=== PATIENT | female | born 1965 | race Caucasian/White ===

== ENCOUNTER 2017-10-21 06:50 | Day surgery (SDC) | payer BC ==
[~2017-10-21 06:50] MED LIST: Lactated Ringers 1,000 ML IV SCH; Sodium Chloride 0.9% 10 ML Syringe FLUSH PRN
[2017-10-21] MEDS ORDERED: Propofol 200 MG/20 ML SDV IV ONE (08:00)
[2017-10-21] MEDS ORDERED: Midazolam 1 MG/ML 2 ML SDV IV ONE (08:00)
--- NOTE | 2017-10-21 08:36 | PCM.OPNOTE ---
- General Post-Op/Procedure Note Date of Surgery/Procedure: 10/21/17 Operative Procedure(s): c scope Findings: normal exam Pre Op Diagnosis: screening Post-Op Diagnosis: normal study Anesthesia Technique: MAC Primary Surgeon: Trevon Matthews Pathology: none Complications: None Condition: Good Free Text/Narrative:: see dictation
--- NOTE | 2017-10-21 15:43 | OR ---
DATE OF OPERATION: 10/21/2017 SURGEON: Trevon Matthews MD PROCEDURE PERFORMED: Colonoscopy. PREOPERATIVE DIAGNOSIS: Need for screening C scope. POSTOPERATIVE DIAGNOSIS: Normal study. INDICATIONS FOR PROCEDURE: This is a 52-year-old white female, who is referred for screening colonoscopy. She was offered and accepted same. DESCRIPTION OF OPERATION: After an excellent IV sedation was administered, digital rectal exam was performed. No marked abnormality was noted. Flexible colonoscope was inserted and advanced to the cecum without difficulty. The prep was excellent. The following findings were noted: Ascending colon, unremarkable. Transverse colon, unremarkable. Descending colon, unremarkable. Sigmoid and rectum unremarkable. Colon was deflated as the scope was removed. The patient tolerated the procedure well, and was taken to recovery room in good condition. Repeat scope in 10 years. /[id number] /MODL
== END 2017-10-21 09:35 | disposition home or self-care (01) ==
LOC: FB.SDS 06:50 → MERGE 08:00 → FB.SDS 09:35
PROVIDERS: ATTEND Surgery
DX: Z12.11 Encounter for screening for malignant neoplasm of colon (principal); E66.01 Morbid (severe) obesity due to excess calories; Z68.43 Body mass index [BMI] 50.0-59.9, adult; Z90.49 Acquired absence of other specified parts of digestive tract; Z98.84 Bariatric surgery status; Z98.890 Other specified postprocedural states
CPT/HCPCS: J2250; J2704; J7120